=== PATIENT | female | born 1970 | race Caucasian/White ===

== ENCOUNTER → 2017-12-29 | Outpatient (CLI) | payer BC ==
[~2017-12-29] MED LIST: NO HOME MEDICATIONS
== END ==
LOC: COL.RAD 11:04
DX: R10.2 Pelvic and perineal pain (principal)

== ENCOUNTER → 2023-01-28 | Outpatient (CLI) | payer BC | LOC: CANSCHCLI → MC.RAD 09:30 | DX: Z12.31 Encounter for screening mammogram for malignant neoplasm of breast (principal) ==